=== PATIENT | female | born 1950 | race Hispanic/Latino ===

== ENCOUNTER 2020-12-23 15:11 | Inpatient (IN) | payer MEDICARE, OTHER ==
[~2020-12-23] VITALS: Ht 152.4 cm; Wt 66.2 kg
[2020-12-23 15:29] LABS: BASOPHILS # (AUTO) 0.1 (0.0-0.1); BASOPHILS % 0.6 % (0.0-1.0); EOSINOPHILS # (AUTO) 0.2 (0.0-0.4); EOSINOPHILS % 1.6 % (0.0-6.0); HEMATOCRIT 39.8 % (34.2-44.1); HEMOGLOBIN 13.4 g/dL (12.0-16.0); LYMPHOCYTES # (AUTO) 2.9 (1.0-3.2); LYMPHOCYTES % 26.1 % (18.0-39.1); MEAN CORPUSCULAR HEMOGLOBIN 30.9 pg (28-32); MEAN CORPUSCULAR HGB CONC 33.7 g/dL (31-35); MEAN CORPUSCULAR VOLUME 91.7 fL (81-99); MONOCYTES % 8.8 % (4.4-11.3); NEUTROPHILS # (AUTO) 6.8 (2.1-6.9); NEUTROPHILS % 61.8 % (38.7-80.0); PLATELET COUNT 232 x10e3/uL (140-360); RED BLOOD COUNT 4.34 x10e6/uL (3.6-5.1); RED CELL DISTRIBUTION WIDTH 12.6 % (11.7-14.4)
[2020-12-23] MEDS ORDERED: ASPIRIN 325 MG TAB PO ONE (15:30)
[2020-12-23] MEDS ORDERED: HEPARIN 25,000 UNIT 700 UNIT in DEXTROSE 5% 250ML 250 ML IV SCH (15:30)
[2020-12-23 15:34] LABS: INR 0.87; PROTHROMBIN TIME 12.4 seconds (11.9-14.5)
[2020-12-23 15:35] LABS: PARTIAL THROMBOPLASTIN TIME 31.1 seconds (23.8-35.5)
[2020-12-23 15:46] LABS: ALBUMIN 3.7 g/dL (3.5-5.0); ALBUMIN/GLOBULIN RATIO 0.8 (0.8-2.0); CALCIUM 10.4 mg/dL (8.4-10.2); CREATININE, SERUM 2.22 mg/dL (0.57-1.11)
[2020-12-23 15:52] LABS: CREATINE KINASE MB 2.1 ng/mL (0-5.0)
[2020-12-23] MEDS: HEPARIN 25,000 UNIT 600 UNIT in DEXTROSE 5% 250ML 250 ML IV SCH (16:05)
[2020-12-23] MEDS ORDERED: HEPARIN 25,000 UNIT DRIP IV ONE ×2 (16:06)
[2020-12-23] MEDS ORDERED: METOPROLOL SUCC50 MG PO (17:15)
[2020-12-23] MEDS ORDERED: ZETIA10 MG PO (17:15)
[2020-12-23] MEDS ORDERED: LOSARTAN POTAS100 MG PO (17:15)
[2020-12-23] MEDS ORDERED: PANTOPRAZOLE SO40 MG PO (17:15)
[2020-12-23] MEDS ORDERED: METOPROLOL TART25 MG PO (17:15)
[2020-12-23] MEDS ORDERED: SPIRONOLACTONE25 MG PO (17:15)
[2020-12-23] MEDS ORDERED: JANUVIA50 MG PO (17:15)
[2020-12-23] MEDS ORDERED: CLOPIDOGREL75 MG PO (17:15)
[2020-12-23] MEDS ORDERED: FUROSEMIDE40 MG PO (17:15)
[2020-12-23] MEDS ORDERED: [UNRECOGNIZED DRUG - OTHER] PO (17:15)
[2020-12-23] MEDS ORDERED: RANEXA500 MG PO (17:15)
[2020-12-23] MEDS: SODIUM CHLORIDE 0.9% 1000ML 1,000 ML IV SCH ×2 (17:25→23:10)
[2020-12-23 20:00] VITALS: BP 144/56
[2020-12-23 20:40] VITALS: BP 144/56
[2020-12-23 22:20] LABS: CREATINE KINASE MB 2.1 ng/mL (0-5.0)
[2020-12-23 22:31] VITALS: BP 144/56
[2020-12-23] MEDS ORDERED: VITAMIN C500 MG PO (22:38)
[2020-12-23] MEDS ORDERED: [UNRECOGNIZED DRUG - OTHER] (22:59)
[2020-12-23] MEDS ORDERED: [UNRECOGNIZED DRUG - OTHER] (22:59)
[2020-12-24] VITALS (8 sets, daily range): BP systolic 119–137; BP diastolic 53–70
[2020-12-24 05:27] LABS: BASOPHILS # (AUTO) 0.1 (0.0-0.1); BASOPHILS % 0.5 % (0.0-1.0); EOSINOPHILS # (AUTO) 0.3 (0.0-0.4); EOSINOPHILS % 2.7 % (0.0-6.0); HEMATOCRIT 36.9 % (34.2-44.1); HEMOGLOBIN 12.3 g/dL (12.0-16.0); LYMPHOCYTES # (AUTO) 2.9 (1.0-3.2); LYMPHOCYTES % 30.7 % (18.0-39.1); MEAN CORPUSCULAR HGB CONC 33.3 g/dL (31-35); MEAN CORPUSCULAR VOLUME 92.9 fL (81-99); MONOCYTES # (AUTO) 0.9 (0.2-0.8); MONOCYTES % 9.6 % (4.4-11.3); NEUTROPHILS # (AUTO) 5.3 (2.1-6.9); NEUTROPHILS % 55.8 % (38.7-80.0); PLATELET COUNT 213 x10e3/uL (140-360); RED BLOOD COUNT 3.97 x10e6/uL (3.6-5.1); RED CELL DISTRIBUTION WIDTH 12.6 % (11.7-14.4)
[2020-12-24] MEDS: SODIUM CHLORIDE 0.9% 1000ML 1,000 ML IV SCH ×2 (06:11→14:23)
[2020-12-24 10:35] LABS: ANION GAP 13.7 mmol/L (8-16); CREATININE, SERUM 1.76 mg/dL (0.57-1.11); POTASSIUM 4.7 mmol/L (3.5-5.1)
[2020-12-24] MEDS ORDERED: DEXTROSE 50% SYRINGE 50 ML IV PRN (10:45)
[2020-12-24] MEDS: INSULIN LISPRO 100 UNIT/1 ML 3ML VIAL SQ SCH ×3 (12:31→21:00)
[2020-12-24] MEDS: PANTOPRAZOLE SOD 40 MG TABEC PO SCH (12:34)
[2020-12-24] MEDS: HEPARIN 25,000 UNIT 600 UNIT in DEXTROSE 5% 250ML 250 ML IV SCH (15:45)
[2020-12-24] MEDS: RANOLAZINE 500 MG TABSR PO SCH (16:46)
[2020-12-24] MEDS: CARVEDILOL 3.125 MG TAB PO SCH (16:46)
[2020-12-25] VITALS (8 sets, daily range): BP systolic 118–147; BP diastolic 53–72
[2020-12-25] MEDS: SODIUM CHLORIDE 0.9% 1000ML 1,000 ML IV SCH (02:33)
[2020-12-25] MEDS: INSULIN LISPRO 100 UNIT/1 ML 3ML VIAL SQ SCH ×4 (07:30→21:26)
[2020-12-25] MEDS: RANOLAZINE 500 MG TABSR PO SCH ×2 (09:10→16:29)
[2020-12-25] MEDS: PANTOPRAZOLE SOD 40 MG TABEC PO SCH (09:10)
[2020-12-25] MEDS: CARVEDILOL 3.125 MG TAB PO SCH ×2 (09:10→16:29)
[2020-12-25] MEDS: CLOPIDOGREL BISULFATE 75 MG TAB PO SCH (09:10)
[2020-12-25] MEDS ORDERED: NITROGLYCERIN 0.4 MG SUBL SL PRN (10:00)
[2020-12-25] MEDS ORDERED: ASPIRIN 325 MG TAB PO NR (10:00)
[2020-12-25] MEDS: HEPARIN 25,000 UNIT 600 UNIT in DEXTROSE 5% 250ML 250 ML IV SCH (15:06)
[2020-12-26] VITALS (8 sets, daily range): BP systolic 142–154; BP diastolic 58–72
[2020-12-26 06:47] LABS: ANION GAP 12.5 mmol/L (8-16); CALCIUM 9.5 mg/dL (8.4-10.2); CREATININE, SERUM 1.42 mg/dL (0.57-1.11); POTASSIUM 4.5 mmol/L (3.5-5.1)
[2020-12-26] MEDS: INSULIN LISPRO 100 UNIT/1 ML 3ML VIAL SQ SCH ×4 (07:30→20:45)
[2020-12-26] MEDS: RANOLAZINE 500 MG TABSR PO SCH ×2 (08:05→17:04)
[2020-12-26] MEDS: CARVEDILOL 3.125 MG TAB PO SCH ×2 (08:05→17:03)
[2020-12-26] MEDS: CLOPIDOGREL BISULFATE 75 MG TAB PO SCH (08:05)
[2020-12-26] MEDS: PANTOPRAZOLE SOD 40 MG TABEC PO SCH (08:05)
[2020-12-26] MEDS: ASPIRIN 325 MG TAB PO SCH (08:05)
[2020-12-26] MEDS ORDERED: ALPRAZOLAM 0.5 MG TAB PO PRN (15:00)
[2020-12-26] MEDS: SODIUM CHLORIDE 0.9% 1000ML 1,000 ML IV SCH ×2 (15:00→16:52)
[2020-12-26] MEDS ORDERED: DIPHENHYDRAMINE HCL 25 MG CAP PO PRN (15:00)
[2020-12-26] MEDS: MAGNESIUM/ALUMINUM/SIMETHICONE 30 ML UDC PO PRN (15:14)
[2020-12-26] MEDS: HEPARIN 25,000 UNIT 600 UNIT in DEXTROSE 5% 250ML 250 ML IV SCH (15:45)
[2020-12-27] VITALS (22 sets, daily range): BP systolic 113–189; BP diastolic 53–96
[2020-12-27] MEDS ORDERED: SODIUM CHLORIDE 0.9% 1000ML 1,000 ML IV SCH
[2020-12-27] MEDS: SODIUM CHLORIDE 0.9% 1000ML 1,000 ML IV SCH ×4 (00:07→21:37)
[2020-12-27 05:41] LABS: BASOPHILS % 0.3 % (0.0-1.0); EOSINOPHILS # (AUTO) 0.2 (0.0-0.4); EOSINOPHILS % 2.2 % (0.0-6.0); HEMATOCRIT 35.1 % (34.2-44.1); HEMOGLOBIN 11.7 g/dL (12.0-16.0); LYMPHOCYTES # (AUTO) 2.5 (1.0-3.2); LYMPHOCYTES % 27.6 % (18.0-39.1); MEAN CORPUSCULAR HEMOGLOBIN 30.4 pg (28-32); MEAN CORPUSCULAR HGB CONC 33.3 g/dL (31-35); MEAN CORPUSCULAR VOLUME 91.2 fL (81-99); MONOCYTES # (AUTO) 0.7 (0.2-0.8); MONOCYTES % 8.1 % (4.4-11.3); NEUTROPHILS # (AUTO) 5.6 (2.1-6.9); NEUTROPHILS % 61.1 % (38.7-80.0); PLATELET COUNT 208 x10e3/uL (140-360); RED BLOOD COUNT 3.85 x10e6/uL (3.6-5.1); RED CELL DISTRIBUTION WIDTH 12.5 % (11.7-14.4)
[2020-12-27 05:48] LABS: INR 1.04; PROTHROMBIN TIME 14.2 seconds (11.9-14.5)
[2020-12-27 05:50] LABS: PARTIAL THROMBOPLASTIN TIME 70.2 seconds (23.8-35.5)
[2020-12-27 05:54] LABS: ALBUMIN 2.9 g/dL (3.5-5.0); ALBUMIN/GLOBULIN RATIO 0.8 (0.8-2.0); ANION GAP 13.7 mmol/L (8-16); CALCIUM 8.9 mg/dL (8.4-10.2); CREATININE, SERUM 1.43 mg/dL (0.57-1.11); POTASSIUM 4.7 mmol/L (3.5-5.1)
[2020-12-27] MEDS: INSULIN LISPRO 100 UNIT/1 ML 3ML VIAL SQ SCH ×4 (07:30→21:00)
[2020-12-27] MEDS: ASPIRIN 325 MG TAB PO SCH (08:38)
[2020-12-27] MEDS: CARVEDILOL 3.125 MG TAB PO SCH ×2 (08:39→15:58)
[2020-12-27] MEDS: RANOLAZINE 500 MG TABSR PO SCH ×2 (08:39→15:58)
[2020-12-27] MEDS: PANTOPRAZOLE SOD 40 MG TABEC PO SCH (08:39)
[2020-12-27] MEDS: CLOPIDOGREL BISULFATE 75 MG TAB PO SCH (08:39)
[2020-12-27] MEDS ORDERED: FENTANYL CITRATE/PF 100MCG/2 ML INJ ONE (11:31)
[2020-12-27] MEDS ORDERED: MIDAZOLAM HCL 2 MG/2 ML VIAL ONE (11:31)
[2020-12-27] MEDS ORDERED: LIDOCAINE HCL 2% LOCAL 20 ML VIAL ONE (11:31)
[2020-12-27] MEDS ORDERED: IOPAMIDOL 370 MG/ML 200 ML INFUS..BTL INJ ONE (11:33)
[2020-12-27] MEDS ORDERED: HEPARIN SOD/SOD CHLORIDE 2,000 ML ONE (11:33)
[2020-12-27] MEDS ORDERED: SODIUM CHLORIDE 0.9% 1000ML 1,000 ML ONE (11:33)
[2020-12-27] MEDS ORDERED: SODIUM CHLORIDE 0.9% 500ML 500 ML ONE (12:51)
[2020-12-27] MEDS: SODIUM BICARBONATE 650 MG TAB PO SCH (15:59)
[2020-12-27] MEDS: HEPARIN 25,000 UNIT 600 UNIT in DEXTROSE 5% 250ML 250 ML IV SCH (16:56)
[2020-12-28] VITALS (33 sets, daily range): BP systolic 134–176; BP diastolic 51–104
[2020-12-28 04:50] LABS: BASOPHILS % 0.3 % (0.0-1.0); EOSINOPHILS # (AUTO) 0.2 (0.0-0.4); EOSINOPHILS % 1.8 % (0.0-6.0); HEMATOCRIT 36.3 % (34.2-44.1); LYMPHOCYTES # (AUTO) 1.9 (1.0-3.2); LYMPHOCYTES % 21.2 % (18.0-39.1); MEAN CORPUSCULAR HEMOGLOBIN 30.8 pg (28-32); MEAN CORPUSCULAR HGB CONC 33.1 g/dL (31-35); MEAN CORPUSCULAR VOLUME 93.1 fL (81-99); MONOCYTES # (AUTO) 0.7 (0.2-0.8); MONOCYTES % 7.9 % (4.4-11.3); NEUTROPHILS # (AUTO) 5.9 (2.1-6.9); NEUTROPHILS % 68.1 % (38.7-80.0); PLATELET COUNT 175 x10e3/uL (140-360); RED CELL DISTRIBUTION WIDTH 12.7 % (11.7-14.4)
[2020-12-28 05:12] LABS: ANION GAP 12.4 mmol/L (8-16); CALCIUM 8.7 mg/dL (8.4-10.2); CREATININE, SERUM 1.37 mg/dL (0.57-1.11); POTASSIUM 4.4 mmol/L (3.5-5.1)
[2020-12-28] MEDS: SODIUM CHLORIDE 0.9% 1000ML 1,000 ML IV SCH ×3 (05:35→21:00)
[2020-12-28] MEDS: INSULIN LISPRO 100 UNIT/1 ML 3ML VIAL SQ SCH ×4 (06:50→21:35)
[2020-12-28] MEDS: CARVEDILOL 3.125 MG TAB PO SCH ×2 (09:16→16:56)
[2020-12-28] MEDS: RANOLAZINE 500 MG TABSR PO SCH ×2 (09:16→16:57)
[2020-12-28] MEDS: ASPIRIN 325 MG TAB PO SCH (09:16)
[2020-12-28] MEDS: SODIUM BICARBONATE 650 MG TAB PO SCH ×2 (09:16→16:57)
[2020-12-28] MEDS: PANTOPRAZOLE SOD 40 MG TABEC PO SCH (09:16)
[2020-12-28] MEDS: HEPARIN 25,000 UNIT 600 UNIT in DEXTROSE 5% 250ML 250 ML IV SCH (17:17)
[2020-12-29] VITALS (32 sets, daily range): BP systolic 106–179; BP diastolic 48–113
[2020-12-29] MEDS: SODIUM CHLORIDE 0.9% 1000ML 1,000 ML IV SCH ×2 (05:00→12:48)
[2020-12-29 05:33] LABS: BASOPHILS % 0.3 % (0.0-1.0); EOSINOPHILS # (AUTO) 0.2 (0.0-0.4); EOSINOPHILS % 2.3 % (0.0-6.0); HEMATOCRIT 35.7 % (34.2-44.1); HEMOGLOBIN 11.8 g/dL (12.0-16.0); LYMPHOCYTES # (AUTO) 1.9 (1.0-3.2); LYMPHOCYTES % 21.7 % (18.0-39.1); MEAN CORPUSCULAR HEMOGLOBIN 30.5 pg (28-32); MEAN CORPUSCULAR HGB CONC 33.1 g/dL (31-35); MEAN CORPUSCULAR VOLUME 92.2 fL (81-99); MONOCYTES # (AUTO) 0.8 (0.2-0.8); MONOCYTES % 8.8 % (4.4-11.3); NEUTROPHILS # (AUTO) 5.7 (2.1-6.9); NEUTROPHILS % 66.1 % (38.7-80.0); PLATELET COUNT 145 x10e3/uL (140-360); RED BLOOD COUNT 3.87 x10e6/uL (3.6-5.1); RED CELL DISTRIBUTION WIDTH 12.7 % (11.7-14.4)
[2020-12-29 05:53] LABS: ALBUMIN 2.9 g/dL (3.5-5.0); ALBUMIN/GLOBULIN RATIO 0.8 (0.8-2.0); CALCIUM 8.7 mg/dL (8.4-10.2); CREATININE, SERUM 1.22 mg/dL (0.57-1.11)
[2020-12-29] MEDS: INSULIN LISPRO 100 UNIT/1 ML 3ML VIAL SQ SCH ×3 (07:04→17:40)
[2020-12-29] MEDS: PANTOPRAZOLE SOD 40 MG TABEC PO SCH (07:52)
[2020-12-29] MEDS: ASPIRIN 325 MG TAB PO SCH (07:52)
[2020-12-29] MEDS: SODIUM BICARBONATE 650 MG TAB PO SCH ×2 (07:52→16:14)
[2020-12-29] MEDS: RANOLAZINE 500 MG TABSR PO SCH ×2 (07:52→16:14)
[2020-12-29] MEDS: CARVEDILOL 3.125 MG TAB PO SCH ×2 (07:52→16:14)
[2020-12-29] MEDS: MAGNESIUM/ALUMINUM/SIMETHICONE 30 ML UDC PO PRN (07:53)
[2020-12-29] MEDS ORDERED: ACETAMINOPHEN 325 MG TAB PO PRN (16:00)
[2020-12-29] MEDS: HEPARIN 25,000 UNIT 600 UNIT in DEXTROSE 5% 250ML 250 ML IV SCH (16:13)
[2020-12-29] MEDS ORDERED: TRAZODONE HCL 50 MG TAB PO PRN (21:00)
== END 2020-12-29 18:45 | disposition short-term general hospital (02) | DRG 271 ==
LOC: ER 15:30 → ERHOLD 17:10 → MED/SURG 18:16 → OBSVTOIN 12-24 11:20 → ICU 12-27 14:16
PROVIDERS: ADMIT Internal Medicine; ATTEND Internal Medicine
PROC: 4A023N7 Measurement of Cardiac Sampling and Pressure, Left Heart, Percutaneous Approach (ICD-10-PCS; principal; 2020-12-27)
PROC: 5A02210 Assistance with Cardiac Output using Balloon Pump, Continuous (ICD-10-PCS; 2020-12-27)
PROC: B2111ZZ Fluoroscopy of Multiple Coronary Arteries using Low Osmolar Contrast (ICD-10-PCS; 2020-12-27)
PROC: B2151ZZ Fluoroscopy of Left Heart using Low Osmolar Contrast (ICD-10-PCS; 2020-12-27)
DX: I25.110 Atherosclerotic heart disease of native coronary artery with unstable angina pectoris (principal); N17.9 Acute kidney failure, unspecified; I12.9 Hypertensive chronic kidney disease with stage 1 through stage 4 chronic kidney disease, or unspecified chronic kidney disease; E78.5 Hyperlipidemia, unspecified; E11.21 Type 2 diabetes mellitus with diabetic nephropathy; E11.22 Type 2 diabetes mellitus with diabetic chronic kidney disease; I13.10 Hypertensive heart and chronic kidney disease without heart failure, with stage 1 through stage 4 chronic kidney disease, or unspecified chronic kidney disease; N18.32 Chronic kidney disease, stage 3b; Z79.4 Long term (current) use of insulin; Z95.5 Presence of coronary angioplasty implant and graft
CPT/HCPCS: 33970; 36415; 71045; 76937; 80048; 80053; 82550; 82553; 82948; 83880; 84484; 85025; 85610; 85730; 93005; 93306; 93458; 93880; 96366; 96372; 99152; 99153; 99284; C1769; C1887; G0378; J2001; J2250; J3010; J7030; J7040; Q9967; U0002

== ENCOUNTER 2021-11-01 10:54 | Observation (INO) | payer MEDICARE, OTHER ==
[2021-10-27 13:43] LABS: BASOPHILS % 0.4 % (0.0-1.0); EOSINOPHILS # (AUTO) 0.1 (0.0-0.4); EOSINOPHILS % 1.4 % (0.0-6.0); HEMATOCRIT 41.7 % (34.2-44.1); HEMOGLOBIN 14.2 g/dL (12.0-16.0); LYMPHOCYTES # (AUTO) 2.2 (1.0-3.2); LYMPHOCYTES % 24.2 % (18.0-39.1); MEAN CORPUSCULAR HEMOGLOBIN 31.9 pg (28-32); MEAN CORPUSCULAR HGB CONC 34.1 g/dL (31-35); MEAN CORPUSCULAR VOLUME 93.7 fL (81-99); MONOCYTES # (AUTO) 0.8 (0.2-0.8); MONOCYTES % 8.4 % (4.4-11.3); NEUTROPHILS % 65.2 % (38.7-80.0); PLATELET COUNT 226 x10e3/uL (140-360); RED BLOOD COUNT 4.45 x10e6/uL (3.6-5.1); RED CELL DISTRIBUTION WIDTH 12.2 % (11.7-14.4)
[2021-10-27 14:01] LABS: ALBUMIN 3.3 g/dL (3.5-5.0); ALBUMIN/GLOBULIN RATIO 0.7 (0.8-2.0); ANION GAP 15.1 mmol/L (8-16); CALCIUM 9.5 mg/dL (8.4-10.2); CREATININE, SERUM 2.18 mg/dL (0.57-1.11); POTASSIUM 5.1 mmol/L (3.5-5.1)
[2021-11-01] VITALS (24 sets, daily range): BP systolic 134–187; BP diastolic 45–88
[~2021-11-01] VITALS: Ht 154.9 cm; Wt 65.8 kg
[~2021-11-01 10:54] MED LIST: CLOPIDOGREL75 MG PO; FUROSEMIDE40 MG PO; JANUVIA50 MG PO; LOSARTAN POTAS100 MG PO; METOPROLOL SUCC50 MG PO; METOPROLOL TART25 MG PO; PANTOPRAZOLE SO40 MG PO; RANEXA500 MG PO; SPIRONOLACTONE25 MG PO; VITAMIN C500 MG PO; ZETIA10 MG PO; [UNRECOGNIZED DRUG - OTHER]; [UNRECOGNIZED DRUG - OTHER]; [UNRECOGNIZED DRUG - OTHER] PO
[2021-11-01] MEDS ORDERED: ALPRAZOLAM 0.5 MG TAB ONE (11:50)
[2021-11-01] MEDS ORDERED: DIPHENHYDRAMINE HCL 25 MG CAP ONE (11:50)
[2021-11-01] MEDS ORDERED: SODIUM CHLORIDE 0.9% 1000ML 1,000 ML ONE ×2 (12:47→13:24)
[2021-11-01] MEDS ORDERED: IOPAMIDOL 370 MG/ML 100 ML INFUS..BTL INJ ONE (12:47)
[2021-11-01] MEDS ORDERED: LIDOCAINE HCL 2% LOCAL 20 ML VIAL ONE (12:47)
[2021-11-01] MEDS ORDERED: HEPARIN SOD/SOD CHLORIDE 2,000 ML ONE (12:47)
[2021-11-01] MEDS ORDERED: IOPAMIDOL 300MG/ML 100 ML INFUS..BTL IV ONE ×2 (12:50→13:32)
[2021-11-01] MEDS ORDERED: MIDAZOLAM HCL 2 MG/2 ML VIAL ONE ×2 (12:54→13:38)
[2021-11-01] MEDS ORDERED: FENTANYL CITRATE/PF 100MCG/2 ML INJ ONE (12:55)
[2021-11-01] MEDS ORDERED: VERAPAMIL HCL 2.5 MG/ML 2 ML VIAL ONE (13:24)
[2021-11-01] MEDS ORDERED: LIDOCAINE 1% W/EPINEPHRINE 20 ML VIAL ONE (16:56)
[2021-11-01] MEDS ORDERED: DEXTROSE 50% SYRINGE 50 ML IV PRN (19:00)
[2021-11-01] MEDS: INSULIN REGULAR, HUMAN 100 UNIT/1 ML SQ SCH (21:00)
[2021-11-01] MEDS ORDERED: EZETIMIBE 10 MG TAB PO SCH (21:00)
[2021-11-01] MEDS ORDERED: CRESTOR10 MG PO (22:51)
[2021-11-02 03:51] VITALS: BP 145/47
[2021-11-02] MEDS: INSULIN REGULAR, HUMAN 100 UNIT/1 ML SQ SCH (07:30)
[2021-11-02 07:57] VITALS: BP 167/77
[2021-11-02 08:50] VITALS: BP 167/77
[2021-11-02] MEDS ORDERED: SPIRONOLACTONE 25 MG TAB PO SCH (09:00)
[2021-11-02] MEDS ORDERED: SITAGLIPTIN 100 MG TAB PO SCH (09:00)
[2021-11-02] MEDS ORDERED: METOPROLOL SUCCINATE 50 MG TAB XL PO SCH (09:00)
[2021-11-02] MEDS ORDERED: FUROSEMIDE 20 MG TAB PO SCH (09:00)
[2021-11-02] MEDS ORDERED: CLOPIDOGREL BISULFATE 75 MG TAB PO SCH (09:00)
[2021-11-02] MEDS ORDERED: RANOLAZINE 500 MG TABSR PO SCH (09:00)
[2021-11-02] MEDS ORDERED: LOSARTAN POTASSIUM 100 MG TAB PO SCH (09:00)
[2021-11-02] MEDS ORDERED: ASCORBIC ACID 500 MG TAB PO SCH (09:00)
== END 2021-11-02 08:58 | disposition home or self-care (01) ==
LOC: CATH LAB 10:54 → MED/SURG 18:05
PROVIDERS: ADMIT Internal Medicine Interventional Cardiology; ATTEND Internal Medicine Interventional Cardiology
DX: I70.221 Atherosclerosis of native arteries of extremities with rest pain, right leg (principal); T82.856A Stenosis of peripheral vascular stent, initial encounter; I25.10 Atherosclerotic heart disease of native coronary artery without angina pectoris; I25.810 Atherosclerosis of coronary artery bypass graft(s) without angina pectoris; R01.1 Cardiac murmur, unspecified; E11.9 Type 2 diabetes mellitus without complications; I25.2 Old myocardial infarction; E78.00 Pure hypercholesterolemia, unspecified; Z20.822 Contact with and (suspected) exposure to COVID-19; I10 Essential (primary) hypertension; Z83.3 Family history of diabetes mellitus; Z82.49 Family history of ischemic heart disease and other diseases of the circulatory system; Z01.812 Encounter for preprocedural laboratory examination
CPT/HCPCS: 36415 ×2; 37186; 37225; 75625; 76937; 80053; 82948; 83880; 85025; C1724; C1760; C1769 ×3; C1887; C1894; C2623; G0378 ×2; J1817; J2001; J2250; J3010; J7030; Q9967; U0002; 36247; 37224; 75716; 99152; 99153

== ENCOUNTER → 2022-07-27 | Day surgery (SDC) | payer MEDICARE, OTHER ==
[2022-07-21 10:14] LABS: BASOPHILS % 0.4 % (0.0-1.0); EOSINOPHILS # (AUTO) 0.2 (0.0-0.4); EOSINOPHILS % 1.4 % (0.0-6.0); HEMATOCRIT 46.2 % (34.2-44.1); HEMOGLOBIN 14.5 g/dL (12.0-16.0); LYMPHOCYTES # (AUTO) 2.2 (1.0-3.2); LYMPHOCYTES % 20.9 % (18.0-39.1); MEAN CORPUSCULAR HEMOGLOBIN 30.7 pg (28-32); MEAN CORPUSCULAR HGB CONC 31.4 g/dL (31-35); MEAN CORPUSCULAR VOLUME 97.9 fL (81-99); MONOCYTES # (AUTO) 0.9 (0.2-0.8); MONOCYTES % 8.5 % (4.4-11.3); NEUTROPHILS # (AUTO) 7.1 (2.1-6.9); NEUTROPHILS % 68.1 % (38.7-80.0); PLATELET COUNT 195 x10e3/uL (140-360); RED BLOOD COUNT 4.72 x10e6/uL (3.6-5.1); RED CELL DISTRIBUTION WIDTH 11.9 % (11.7-14.4)
[~2022-07-27] MED LIST changes: +B12; +CRESTOR10 MG PO; +FAMOTIDINE20 MG PO; +HUMALOG MI100 UNIT/2 SQ; +JANUVIA25 MG PO; +LIDOCAINE HCL 2% LOCAL INJ 5 ML SDV VIAL INJ ONE; +OMEPRAZOLE40 MG PO; +PROPOFOL IV EMULSION 10 MG/ML 20 ML VIAL ONE; +TRAZODONE HCL50 MG PO; +TRESIBA100 UNIT/1 INJ; +VITAMIN C1000 MG PO
[2022-07-27 09:20] VITALS: BP 116/62
== END | disposition home or self-care (01) ==
LOC: OR 06:30
PROVIDERS: ATTEND Internal Medicine Gastroenterology
DX: K29.50 Unspecified chronic gastritis without bleeding (principal); D12.2 Benign neoplasm of ascending colon; D12.3 Benign neoplasm of transverse colon; D12.4 Benign neoplasm of descending colon; K21.9 Gastro-esophageal reflux disease without esophagitis; K28.9 Gastrojejunal ulcer, unspecified as acute or chronic, without hemorrhage or perforation; K50.90 Crohn's disease, unspecified, without complications; K64.8 Other hemorrhoids; I25.10 Atherosclerotic heart disease of native coronary artery without angina pectoris; I10 Essential (primary) hypertension; E78.5 Hyperlipidemia, unspecified; E11.9 Type 2 diabetes mellitus without complications; Z01.812 Encounter for preprocedural laboratory examination; Z79.02 Long term (current) use of antithrombotics/antiplatelets; Z79.4 Long term (current) use of insulin; Z79.84 Long term (current) use of oral hypoglycemic drugs; Z79.899 Other long term (current) drug therapy
CPT/HCPCS: 36415 ×2; 43239; 45385; 82948; 85025; 88305; 88342; J2001; J2704; 45378; 45380; 88304; 88312